=== PATIENT | male | born 1995 | race Caucasian/White ===

== ENCOUNTER 2025-05-10 14:22 | Emergency (ER) | payer OTHER ==
[~2025-05-10] VITALS: Ht 180.3 cm; Wt 156.8 kg
[2025-05-10 14:37] VITALS: BP 148/100; PULSE 83; RESP 18; TEMP 98; O2SAT 94
[2025-05-10 14:50] LABS: GLUCOMETER DEV NAME(LOC) ER.7; GLUCOSE,POINT OF CARE 101 MG/DL (70-110)
[2025-05-10] MEDS: LIDOCAINE 5% TRANSDERMAL PATCH TD ONE (16:24)
[2025-05-10] MEDS: ACETAMINOPHEN 500 MG TABLET PO ONE (16:24)
[2025-05-10] MEDS: KETOROLAC TROMETHAMINE 30 MG/ML VIAL IM ONE (16:25)
[2025-05-10] MEDS: OxyCODONE HCL 5 MG IR TABLET PO ONE (18:00)
== END 2025-05-10 18:07 ==
LOC: EMS 14:22
DX: S39.012A Strain of muscle, fascia and tendon of lower back, initial encounter (principal); Z98.890 Other specified postprocedural states; X58.XXXA Exposure to other specified factors, initial encounter; Y93.89 Activity, other specified; Y92.89 Other specified places as the place of occurrence of the external cause; Y99.8 Other external cause status
CPT/HCPCS: 99284; 82962; 72100; 96372; J1885